=== PATIENT | male | born 1990 | race Hispanic/Latino ===

== ENCOUNTER 2022-12-27 20:39 | Emergency (ER) | payer OTHER ==
[~2022-12-27] VITALS: Ht 170.2 cm; Wt 90.7 kg
[2022-12-27 21:21] VITALS: BP 158/92; PULSE 100; RESP 17; O2SAT 100
== END 2022-12-27 21:21 ==
LOC: EDH 20:39
DX: Z04.1 Encounter for examination and observation following transport accident (principal)